=== PATIENT | female | born 1970 | race Caucasian/White ===

== ENCOUNTER 2024-11-26 12:27 | Emergency (ER) | payer OTHER | END 2024-11-26 14:58 | disposition home or self-care (01) | LOC: MADERS 12:27 | DX: S90.122A Contusion of left lesser toe(s) without damage to nail, initial encounter (principal); F90.9 Attention-deficit hyperactivity disorder, unspecified type; W20.8XXA Other cause of strike by thrown, projected or falling object, initial encounter | CPT/HCPCS: 99283 ==